=== PATIENT | female | born 1945 | race Caucasian/White ===

== ENCOUNTER → 2023-11-28 09:59 | Outpatient (REF) | payer MEDICARE, OTHER, SELFPAY | LOC: RCS 09:59 | PROVIDERS: ATTENDING PHYSICIAN Nurse Practitioner Family; FAMILY PHYSICIAN Family Medicine | DX: R07.9 Chest pain, unspecified (principal); R06.09 Other forms of dyspnea | CPT/HCPCS: 93017; 93350 ==

== ENCOUNTER → 2024-03-09 07:51 | Outpatient (REF) | payer MEDICARE, OTHER, SELFPAY | LOC: DHCBC/DCA 07:51 | PROVIDERS: ATTENDING PHYSICIAN Internal Medicine Interventional Cardiology; FAMILY PHYSICIAN Nurse Practitioner Family | DX: Z01.818 Encounter for other preprocedural examination (principal); R07.9 Chest pain, unspecified | CPT/HCPCS: 78452; 93017; A9500; J2785 ==

== ENCOUNTER → 2024-06-02 13:34 | Outpatient (REF) | payer MEDICARE, OTHER, SELFPAY | LOC: WDC 13:34 | PROVIDERS: ATTENDING PHYSICIAN Nurse Practitioner Family | DX: Z12.31 Encounter for screening mammogram for malignant neoplasm of breast (principal) | CPT/HCPCS: 77063; 77067 ==

== ENCOUNTER → 2024-10-14 11:18 | Outpatient (REF) | payer MEDICARE, OTHER, SELFPAY | LOC: RAD 11:18 | PROVIDERS: ATTENDING PHYSICIAN Nurse Practitioner Family | DX: M25.512 Pain in left shoulder (principal); M25.551 Pain in right hip; M25.552 Pain in left hip | CPT/HCPCS: 73030; 73523 ==

== ENCOUNTER 2024-11-26 08:55 | Day surgery (SDC) | payer MEDICARE, OTHER, SELFPAY ==
[2024-11-26] VITALS (20 sets, daily range): BP systolic 118–157; BP diastolic 62–103; BMI 25.2; BMI 24.8
[2024-11-26] MEDS: LOW STRENGTH ASPIRIN 81 MG PO (10:26)
[2024-11-26] MEDS: NSS 197 ML IV (10:28)
[2024-11-26 12:05] LABS: ACT-LR - POC 256 Seconds (116-155)
[2024-11-26 12:13] LABS: ACT-LR - POC 302 Seconds (116-155)
[2024-11-26 12:38] LABS: ACT-LR - POC 327 Seconds (116-155)
[2024-11-26 13:08] LABS: ACT-LR - POC 285 Seconds (116-155)
--- NOTE | 2024-11-26 15:44 | CM ---
Addendum entered by PRASHANTH Sykes 11/26/24 16:08:
Pharmacy did state that they only have partial stock of this medication avail. but can order and have available next day if RX is sent.
Original Note:
Priced Brilinta thru patient's insurance, (ID [id number]). Estimated cost of Brilinta will be $232.25/mo.
TT to ANDREW to update.
--- NOTE | 2024-11-26 19:00 | ITS.CL.CATH ---
Care Team Coordinator Scheduler - Catheterization
Cardiac Catheterization
Procedure Report:
LEFT HEART CATH AND CORONARY INTERVENTION
Date of Procedure: November 26, 2024
Referring: Dr. Nicci Allen
PROCEDURES:
1. Left heart catheterization with coronary and single-plane left ventriculography
2. Successful stenting of the proximal to mid LAD with a 3.0 x 34 mm Sterrett stent that was implanted at nominal pressures and postdilated distally to high pressures with a 3.0 mm noncompliant balloon and proximally with a 3.5 mm noncompliant balloon
to 20 ryan
INDICATION: This is a 79-year-old female with no prior cardiac history who has been experiencing medically refractory chest tightness for 6 to 12 months. Her symptoms have persisted and she is now referred for coronary angiography in the setting of
ongoing/worsening symptoms
ACCESS: Right radial artery, 6 Pashto sheath
HEMODYNAMICS (mmHg):
AO (s/d, m) : 143/76, 108
LV (s/d) : 149/9
LVEDP : 19
CORONARY FINDINGS
Dominance: Right
LEFT MAIN: Normal
LEFT ANTERIOR DESCENDING: The LAD arises normally from the left main and is moderately calcified with a complex [place] 1, 1, 1 stenosis in the proximal LAD involving a moderate diagonal branch with a 90 degree origin from the LAD. The mid LAD has
diffuse but noncritical luminal irregularities beyond that the diagonal branch and the distal vessel wraps completely around the apex.
CIRCUMFLEX: The circumflex is a medium caliber nondominant vessel that supplies a trifurcating terminal obtuse marginal branch with a 40% proximal stenosis
RIGHT CORONARY: The right coronary artery is a dominant vessel that has diffuse minor irregularities over its course but no focal obstructive stenosis
VENTRICULOGRAPHY: Left ventriculography is performed in [place] projection. The digital single-plane left ventricular ejection fraction is visually estimated at 65% and no regional wall motion abnormalities are noted.
ANGIOPLASTY PROCEDURE DETAIL: Upon review of the diagnostic catheterization images a decision was made to proceed with percutaneous revascularization of the proximal to mid LAD [place] class 1,1,1. A strategy of provisional stenting was undertaken
given the 90 degree origin of the diagonal branch from the LAD with the stenting felt to be a reasonable option. Intravenous heparin was administered and the ACT was monitored throughout the procedure. A 180 mg loading dose of ticagrelor was given
at the beginning of the interventional procedure.
The origin of the left main was cannulated with an EBU 3.5 guiding catheter. A short BMW guidewire was advanced into the diagonal branch with a mild amount of difficulty. A BMW guidewire was advanced to the LAD which proved surprisingly difficult
to cross. With a little luck and persistence a BMW guidewire across the high-grade stenosis in the LAD and was advanced to the apical LAD. Balloon predilation was performed with a 2.5 mm Euphora balloon. We then attempted to cross the stenotic
segment with a 3.0 x 34 mm Hernan stent. Unfortunately, the stent would not cross the proximal segment and was removed from the artery. Redilation was performed to higher pressures with a 2.5 mm noncompliant balloon achieving good balloon expansion.
At this point the 3.0 x 34 mm Hernan stent did cross the proximal stenotic segment and was positioned with angiographic and fluoroscopic guidance. The stent was deployed at nominal pressures. Intravascular ultrasound was then performed. The distal
portion of the stent appeared well-approximated to the arterial wall and was postdilated to high pressures with a 3.0 mm noncompliant balloon. The mid and proximal portion of the stent were somewhat underexpanded. Intravascular ultrasound and
maximal diameters closer to 4 mm on the proximal edge of the stent. A 3.5 x 20 mm noncompliant balloon was inflated to 18 ryan achieving a final luminal diameter around 3.75 mm. Angiography near the conclusion of the procedure revealed moderate
haziness on the distal edge of the LAD stent and the decision was made to cover this area with a 3.0 x 18 mm Sterrett stent that was implanted at nominal pressures and postdilated to an appropriate size with a 3.0 mm noncompliant balloon with a nice
angiographic result
SEDATION: 100 minutes of procedural sedation was utilized. An independent medical esthetician was present to assist with and help manage the patient's level of consciousness and physiologic status
RADIATION SUMMARY: Fluoro Time (min): 18.3, Dose (mGy): 487, DAP (Gy.cm2) : 30.8
CONCLUSIONS
1. Successful stenting of proximal to mid LAD with overlapping 3.0 x 34 mm and 3.0 x 18 mm Sterrett stents. The proximal to midportion of the stented segment was postdilated to high pressures with a 3.5 mm noncompliant balloon to 20 ryan achieving a
final luminal diameter of 3.75 mm. The mid to distal portion of the stented segment was postdilated with a 3.0 mm noncompliant balloon to high pressures within the mid-distal portion of the stent and to nominal pressures near the distal edge of the
stent
2. The first diagonal branch was jailed by the LAD stent but had CATHY-3 flow and angiographically appeared no different from prestenting angiogram
3. Preserved LV systolic function
RECOMMENDATIONS
1. Uninterrupted dual antiplatelet therapy for 6 months
2. High intensity statin and guideline directed medical therapy for good blood pressure control
Copy to: Dr. Nicci Allen
--- NOTE | 2024-11-26 19:12 | PTCARENOTE ---
~1530: Handoff report received from [facility].
~1545: patient arrived from [facility] via wheelchair. TR band in place on R radial site. Site is bruised. Air removed per protocol by CCL RN, no oozing noted. Pt AOx4, NSR on tele 70s-80s, SBP 120s, RA. Pt denies pain at this time. Standby assist OOB.
Patient oriented to room and callbell system. All needs met at this time, call within reach.
~3065-6409: Air removed from TR band.
~1745: Attempt to remove more air from TR band, appears site may be oozing, no air removed at this time.
~1815: 2cc air removed. however, about 5 mins later, site is clearly still oozing, 3cc air placed back. Above TR band looks slightly more swollen, made aware.
~1840: +3cc placed back in by Dr. Fernandez and instructed to wait about 1 hour until air is attempted to be removed again.
~1900: Patient ambulated to bathroom with standby assist. 1 episode of dizziness with sitting up. Handoff report given to nightshift RN.
[2024-11-26] MEDS: BRILINTA 90 MG PO (21:19)
--- NOTE | 2024-11-26 21:34 | PTCARENOTE ---
Ambulated pt w/ standby assist to the bathroom. Pt c/o lightheadedness. This RN instructed pt to sit on the toilet. Obtained BP which revealed 157/83. HR remains NSR in the 60-80's. Pt states 'I feel like I had to much to drink'. After approx 5 mins
of rest pt back to baseline. Denies any further lightheadedness. Patient currently laying in bed. Denies any chest pain. Call within reach.
--- NOTE | 2024-11-26 22:30 | PTCARENOTE ---
TR band removed at 21:45, dry dressing applied. educated about activity restrictions. (+) radial pulse. Site tender to touch and ecchymotic. Call in reach.
[2024-11-26] MEDS: PEPCID 20 MG PO (22:36)
[2024-11-26] MEDS: MELATONIN 5 MG PO (22:36)
[2024-11-26] MEDS: TOPROL XL 25 MG PO (22:36)
[2024-11-26] MEDS: CRESTOR 40 MG PO (22:36)
[2024-11-27 04:45] VITALS: BP 129/91
[2024-11-27 05:12] LABS: Hematocrit 36.0 % (37.0-47.0); Hemoglobin 12.4 g/dL (12.0-16.0); Mean Corp Hgb Conc. 34.4 g/dL (33.0-37.0); Mean Corpuscular Volume 83.7 fL (81.0-99.0); Platelet Count 187 10^3/uL (130-400); Red Cell Dist. Width 12.4 % (11.5-14.5)
[2024-11-27 05:35] LABS: Blood Urea Nitrogen 23 mg/dl (7-17); Calcium 9.3 mg/dl (8.4-10.2); Carbon Dioxide 22 mmol/L (22-30); Chloride 109 mmol/L (98-107); Estimated Creatinine Clearance 64 ml/min; Glucose 105 mg/dl (70-99); HDL Cholesterol 66 mg/dl; LDL Cholesterol, Calculated 61 mg/dl; Potassium 4.2 mmol/L (3.5-5.1); Sodium 136 mmol/L (135-145); Very Low Density Lipoprotein 26 mg/dl (0-30); eGFR > 60.00
[2024-11-27 08:04] VITALS: BP 119/67
[2024-11-27] MEDS: BRILINTA 90 MG PO (08:41)
[2024-11-27] MEDS: COZAAR 50 MG PO (08:42)
[2024-11-27 08:52] LABS: Hepatitis C Antibody Negative (Negative)
--- NOTE | 2024-11-27 09:00 | PTCARENOTE ---
received patient on walking rounds , right wrist purple, soft, tender to touch, palpable radial pulse. dsg. D/I. monitor shows NSR, VSS. Catie Ackerman CENTRAL SUPPLY MANAGER in room , ordered U/S of right wrist.
--- NOTE | 2024-11-27 09:34 | W.PN.CARDCBS ---
Addendum entered and electronically signed by Dereje Fernandez MD 11/27/24 10:47:
Attending addendum: Patient was not discharged yesterday due to persistent oozing / hematoma at/above right radial access site. This morning no bruit noted. Area is quite ecchymotic. She is generally feeling well. No chest pain post procedure.
PE:
Gen: awake, conversant, NAD
HEENT: NC/AT, sclera anicteric
Lungs: Clear anterior and lateral lung bradford
CV: RRR
Ext: Ecchymotic bruising right radial / forearm area. No bruit
RECOMMENDATIONS:
-Will check ultrasound
-If ultrasound looks okay will discharge with plans to followup w Dr. Nicci Allen
Original Note:
Today's Communication / Plan
-
rad u/s today
DAPT ASA/Brilinta, will monitor as outpt
poss d/c home later today
Impression / Plan
-
Primary care physician: ANDREW Orellana
Primary stonecutter assistant: Dr. Nicci Allen
79-year-old female with no prior cardiac history who has been experiencing medically refractory chest tightness for 6 to 12 months. Her symptoms have persisted and she is now referred for coronary angiography in the setting of ongoing/worsening
symptoms
Impression:
Unstable angina
post PCI LAD x 1 ANTWAN 11/26/24
post procedure radial HT
HTN
HLD
Osteoarthritis
Migraines
former smoker
11/26/24 C:
1. Left heart catheterization with coronary and single-plane left ventriculography
2. Successful stenting of the proximal to mid LAD with a 3.0 x 34 mm [place] stent that was implanted at nominal pressures and postdilated distally to high pressures with a 3.0 mm noncompliant balloon and proximally with a 3.5 mm noncompliant balloon
to 20 ryan
Plan:
post PCI plan was for d/c home but developed large HT and admitted for observation
Rad site with ecchymosis, good pulse
Will check rad u/s to rule out PSA
tele SR no sig ectopy
DAPT ASA/Brilinta, having some mild dyspnea ? r/t to med, will monitor
LDL 61 continue rosuvastatin 40mg daily goal LDL less than 55
Stop meloxicam and limit ibuprofen use for arthritis due to increased bleeding risk
cardiac rehab c/s
f/u DCA 2-4 weeks
home later today if u/s ok
Progress Note - Control Valve Technician
Subjective
Date of Service: November 27, 2024
denies cp, mild dyspnea ? r/t Brilinta
Objective
Labs:
11/27/24 05:01
11/27/24 05:01
Labs
Hgb 12.4 g/dL (12.0-16.0) 11/27/24 05:01
Hct 36.0 % (37.0-47.0) L 11/27/24 05:01
Plt Count 187 10^3/uL (130-400) 11/27/24 05:01
Sodium 136 mmol/L (135-145) 11/27/24 05:01
Potassium 4.2 mmol/L (3.5-5.1) 11/27/24 05:01
BUN 23 mg/dl (7-17) H 11/27/24 05:01
Creatinine 0.5 mg/dL (0.6-1.0) L 11/27/24 05:01
Glucose 105 mg/dl (70-99) H 11/27/24 05:01
Vital Signs and I&O:
Vital Signs
Temp Pulse Resp BP Pulse Ox
98.2 F 67 18 119/67 96
11/27/24 04:46 11/27/24 09:00 11/27/24 04:46 11/27/24 08:42 11/27/24 08:30
Vital Signs
Temp Pulse Resp BP Pulse Ox
98.2 F 67 18 119/67 96
11/27/24 04:46 11/27/24 09:00 11/27/24 04:46 11/27/24 08:42 11/27/24 08:30
Intake & Output
11/25/24 11/26/24 11/27/24 11/28/24
06:59 06:59 06:59 06:59
Intake Total 500 / 500
Balance 500 / 500
Physical Exam
Physical Exam
NAD< AOX3
S1, s2, RRR
CTAB, non labored, no wheeze
SNTND bsx4
R rad site good pulse, no HT, ecchymosis up forearm
--- NOTE | 2024-11-27 11:22 | CM ---
Reviewed chart. Met with Mrs. Hardin to review discharge plans. She states prior to admission she resides with her spouse in a two story home with one step to enter. She resides in a [place] community for 20 years. She states she has a first
floor set-up. She states prior to admission she was independent with ambulation and adls. She states she does not have any DME in the home. She states she has a prescription plan and uses [facility]. [facility] call to [facility] to check
on co-pay for Brilinta or generic Tricagrelor. [facility] states [facility] need a prior auth for Brilinta and Tricagrelor. The prior auth. number is [id number]) The Tricagrelor is in Tier 4 and she would pay 3) 5 of the cost and Brilinta brand
name is on Tier 3 and she would have a co-pay of $25% of the cost of the medication, Approx $232.25. Gave the P.A. phone number to P.A. to have the office do P.A. Her [facility] did not have in in stock. [facility] in [facility] and [facility] on [facility]
also does not have Tricagrelor in stock. [facility] on [address] does have it instock. N.P sent script over to [facility]. Reviewed all above with her. She is agreeable to using the [facility] coupon and picking up the medications at [facility] on
[address]. The discharge plan is to return home with her spouse when medically stable.
[2024-11-27 11:27] VITALS: BP 134/70
--- NOTE | 2024-11-27 11:47 | W.DS.TRANS ---
DC Summary - Deblocker
-
Discharge Instructions:
Discharge Diagnosis/Procedures Angioplasty with stent to LAD x2
Diet Low Cholesterol
Driving Restrictions No driving for 24 hours
Other Services Cardiac Rehab
Instructions:
Stand-Alone Forms: DC Instructions- Cath/EP Lab
Changes to Home Medications: Yes
Discharge Medications:
DC Medications w/original date entered in [employer]
Aspir-81 81 mg HS 11/26/24
Bacillus coagulans 250 million cell chewable tablet (Probiotic (B. coagulans)) 1 tab PO ONCE 11/26/24
Cbd Gummies 1 tab PO QHS 11/26/24
Cozaar 50 mg DAILY 11/26/24
Crestor 40 mg HS 11/26/24
[place] 3 Fish Oil 1,055 mg TID 11/26/24
Pataday See Rx Instructions .Route .COMPLEX 11/26/24
Pavblu 2 mg Eye Condition 11/26/24
PreserVision AREDS-2 1 tab PO BID 11/26/24
Systane Complete 0.6 % BOTH EYES DAILY 11/26/24
Vitamin C 1,500 mg PO TID 11/26/24
Zyrtec 10 mg HS 11/26/24
acetaminophen 325 mg tablet (Tylenol) 650 mg PO Q4H PRN pain 11/26/24
azelastine 0.1 % BID 11/26/24
calcium 600 mg (as carbonate)-vitamin D3 5 mcg (200 unit) tablet 2 tab PO DAILY 11/26/24
cholecalciferol (vitamin D3) 25 mcg (1,000 unit) capsule (Vitamin D3) 3,000 unit PO HS 11/26/24
coenzyme Q10 100 mg capsule (CoQ-10) 200 mg PO DAILY 11/26/24
famotidine 40 mg HS 11/26/24
ibuprofen 400 mg PO PRN PRN pain 11/26/24
magnesium 200 mg tablet 400 mg PO DAILY 11/26/24
metoprolol succinate 25 mg HS 11/26/24
pegcetacoplan (PF) 15 mg/0.1 mL intravitreal solution (Syfovre (PF)) 15 mg intravitreal QMONTH 11/26/24
vitamin B complex 1 cap 11/26/24
zinc 50 mg tablet 50 mg PO DAILY 11/26/24
ticagrelor 90 mg tablet (Brilinta) 90 mg PO BID #60 tabs 11/27/24
Home Medication Changes
new to brilinta, stop meloxicam
Pending Results: No
--- NOTE | 2024-11-27 12:05 | PTCARENOTE ---
D/C instructions given to patient, verbalizes understanding. Katey, case management called [facility] pharmacy to make sure they are filling Brilinta prescription, they are. telemetry D/C'd, INT D/C'd, personal belongings packed and sent home with patient.
D/C to home via wc accompanied by staff.
== END 2024-11-27 12:29 | disposition home or self-care (01) ==
LOC: CATH 08:55
PROVIDERS: Nurse Practitioner Adult Health; ATTENDING PHYSICIAN Internal Medicine Interventional Cardiology; FAMILY PHYSICIAN Nurse Practitioner Family; REFERRING PHYSICIAN Internal Medicine Cardiovascular Disease
DX: I25.110 Atherosclerotic heart disease of native coronary artery with unstable angina pectoris (principal); E78.5 Hyperlipidemia, unspecified; G43.909 Migraine, unspecified, not intractable, without status migrainosus; I10 Essential (primary) hypertension; M19.90 Unspecified osteoarthritis, unspecified site; Z79.899 Other long term (current) drug therapy; Z87.891 Personal history of nicotine dependence; Z79.82 Long term (current) use of aspirin; Z79.02 Long term (current) use of antithrombotics/antiplatelets
CPT/HCPCS: 80048; 80061; 85027; 85347; 86803; 92978; 93005; 93458; 93926; 99152; 99153; C1725; C1753; C1769; C1874; C1887; C9600; Q9967

== ENCOUNTER → 2025-04-30 11:19 | Outpatient (REF) | payer MEDICARE, OTHER, SELFPAY | LOC: HWRAD 11:19 | PROVIDERS: ATTENDING PHYSICIAN Specialist; FAMILY PHYSICIAN Nurse Practitioner Family; REFERRING PHYSICIAN Family Medicine | DX: M19.011 Primary osteoarthritis, right shoulder (principal) | CPT/HCPCS: 73200 ==